=== PATIENT | male | born 1975 | race Caucasian/White ===

== ENCOUNTER 2020-11-08 13:40 | Outpatient (RCR) | payer OTHER, SELFPAY ==
[2020-11-08] MEDS: COVID-19 VACC, MRNA(PFIZER)/PF 30 MCG/0.3 ML SYRINGE IM (15:14)
[2020-11-29] MEDS: COVID-19 VACC, MRNA(PFIZER)/PF 30 MCG/0.3 ML SYRINGE IM (14:45)
== END 2020-11-08 23:59 ==
LOC: IMMUN 13:40
PROVIDERS: PCP Internal Medicine; Visit Provider Family Medicine
DX: Z23 Encounter for immunization (principal)
CPT/HCPCS: 0001A; 0002A; 91300

== ENCOUNTER → 2022-07-27 | Outpatient (CLI) | payer OTHER, SELFPAY ==
--- NOTE | 2022-07-27 06:38 | MRI_ITS ---
INDICATION: LATERAL EPICONDYLITIS. 3 months pain after weight lifting. EXAMINATION: MRI - LEFT MR Elbow W/O Contrast TECHNIQUE: Multiplanar and multisequence MR images of the left elbow. IV Contrast Dosage and Agent: None. COMPARISON: None. FINDINGS: BONE: No fracture or osteochondral defect. No marrow edema. No aggressive osseous lesion.. No bulky osseous proliferation along the epicondyles. JOINT: Normal alignment. Articular cartilage intact.] [No joint effusion. MUSCLES: Normal muscle bulk and signal. LIGAMENTS: The medial and lateral ligaments are intact. TENDONS: The medial common flexor tendon demonstrates normal signal characteristics and thickness without surrounding edema. The lateral common extensor tendon demonstrates trace increased internal signal at the epicondylar insertion with trace adjacent superficial fluid, reference coronal STIR image 11 and 12. . The triceps, biceps, and brachialis tendon are intact. OTHER SOFT TISSUES: Unremarkable. The ulnar nerve is normal in the cubital tunnel. MRI/Upper Ext Joint Only(Routine) IMPRESSION: Findings compatible with mild common extensor tendon insertion strain or acute lateral epicondylitis. Electronically Signed: Rickey Heart MD at 8:22 EST ,
== END | disposition home or self-care (01) ==
PROVIDERS: PCP Internal Medicine; Referring Provider Physician Assistant; Visit Provider Physician Assistant
DX: M77.12 Lateral epicondylitis, left elbow (principal); M25.522 Pain in left elbow
CPT/HCPCS: 73221

== ENCOUNTER → 2025-01-12 | Outpatient (CLI) | payer OTHER, SELFPAY ==
[2025-01-12 12:41] LABS: Anion Gap 10 (5-15); BUN 15 mg/dL (4-19); Calcium,Total 9.8 mg/dL (7.6-11.0); Carbon Dioxide 26.6 mmol/L (21.0-32.0); Chloride 102 mmol/L (98-108); Cholesterol 199 mg/dL (<=200); Creatinine, Serum 0.84 mg/dL (0.70-1.20); EST Glomerular Filtration Rate 108 (>60); Glucose 97 mg/dL (70-99); High Density Lipoprotein 56 mg/dL; Low Density Lipoprotein Calc. 120 mg/dL; Potassium 4.9 mmol/L (3.3-5.1); Sodium Level 139 mmol/L (133-145); Triglycerides 115 mg/dL; Very Low Density Lipoprotein 23 mg/dL (5-40); cholesterol:hdl ratio screen 3.57
[2025-01-12 12:45] LABS: Hematocrit 45.2 % (40-54); Hemoglobin 15.3 g/dL (13.0-16.5); Mean Corp Hgb Conc 33.8 g/dL (32-36); Mean Corpuscular Hgb 31.3 pg (27.0-32.0); Mean Corpuscular Volume 92.4 fL (80-94); Mean Platelet Vol. 9.9 fl (6.2-12.0); Platelet Count 271 K/mm3 (150-450); RBC Distribution Width CV 12.4 % (11.6-14.6); RBC Distribution Width SD 42.3 fl (35.1-43.9); Red Blood Count 4.89 M/mm3 (4.6-6.2); White Blood Count 6.3 K/mm3 (4.4-11.0)
== END | disposition home or self-care (01) ==
LOC: MFPLAB 10:28
PROVIDERS: PCP Family Medicine; Referring Provider Family Medicine; Visit Provider Family Medicine
DX: Z00.00 Encounter for general adult medical examination without abnormal findings (principal); Z13.1 Encounter for screening for diabetes mellitus; Z13.220 Encounter for screening for lipoid disorders
CPT/HCPCS: 36415; 80048; 80061; 85027